=== PATIENT | female | born 1960 | race African-American/Black ===

== ENCOUNTER → 2017-01-21 | Outpatient (CLI) | payer OTHER ==
[2014-10-08 05:05] VITALS: BP 123/81
--- NOTE | 2017-01-21 13:35 | RAD ---
DATE: 01/21/2017 EXAM: DIGITAL DIAGNOSTIC BILATERAL HISTORY: Right breast cancer COMPARISON: 12/19/2014 This study was interpreted with the benefit of Computerized Aided Detection (CAD). The breast parenchyma shows scattered fibroglandular densities. Breast parenchyma level B. FINDINGS: There has been interval resection of the mass previously seen in the upper outer right breast, reportedly a breast malignancy. There is now architectural distortion with overlying skin thickening and retraction at the surgical site. There are several faint microcalcifications in this region. The findings probably represent postsurgical and posttherapeutic scarring with fat necrosis. Recurrent malignancy cannot be excluded. The fibroglandular pattern in the left breast is unchanged. No new or enlarging left breast densities or suspicious microcalcifications are evident. IMPRESSION: 1. Postsurgical and posttherapeutic changes in the upper outer quadrant of the right breast as described above. Residual or recurrent tumor cannot be excluded in the presence of these opacities. Clinical surveillance and follow-up right mammograms in 6 months are suggested. 2. Stable left mammograms without evidence of malignancy. BI-RADS CATEGORY: 3 PROBABLY BENIGN FINDING(S)-SHORT INTERVAL FOLLOW-UP SUGGESTED RECOMMENDED FOLLOW-UP: 6M 6 MONTH FOLLOW-UP PQRS compliance statement: Patient information was entered into a reminder system with a target due date for the next mammogram. Mammography is a sensitive method for finding small breast cancers, but it does not detect them all and is not a substitute for careful clinical examination. A negative mammogram does not negate a clinically suspicious finding and should not result in delay in biopsying a clinically suspicious abnormality. "Our facility is accredited by the [employer] Mammography [employer]."
== END | disposition home or self-care (01) ==
LOC: MAMMO 12:58
PROVIDERS: ATTEND Internal Medicine Medical Oncology
DX: R92.0 Mammographic microcalcification found on diagnostic imaging of breast (principal); Z85.3 Personal history of malignant neoplasm of breast
CPT/HCPCS: G0204; 77066

== ENCOUNTER → 2017-07-20 | Outpatient (CLI) | payer OTHER ==
[2014-10-08 05:05] VITALS: BP 123/81
--- NOTE | 2017-07-20 10:00 | RAD ---
DATE: 07/20/2017. EXAM: DIGITAL DIAGNOSTIC BILATERAL. HISTORY: Personal history of right breast cancer status post breast conservation therapy. Six-month follow-up. COMPARISON: 01/21/2017. This study was interpreted with the benefit of Computerized Aided Detection (CAD). FINDINGS: The breast parenchyma is heterogeneously dense, which could reduce sensitivity of mammography. Breast parenchyma level C.. Post breast conservation therapy changes are again noted superolaterally on the right. A few microcalcifications in the region appears stable. There is no evidence of recurrence. There are no enlarged axillary lymph nodes. On the left, the parenchymal pattern is stable. A coarse calcification appears benign. BI-RADS CATEGORY: 2 BENIGN FINDING(S). RECOMMENDED FOLLOW-UP: 12M 12 MONTH FOLLOW-UP. PQRS compliance statement: Patient information was entered into a reminder system with a target due date 07/20/2018 for the next mammogram. Mammography is a sensitive method for finding small breast cancers, but it does not detect them all and is not a substitute for careful clinical examination. A negative mammogram does not negate a clinically suspicious finding and should not result in delay in biopsying a clinically suspicious abnormality. "Our facility is accredited by the [employer] Mammography [employer]."
== END | disposition home or self-care (01) ==
LOC: MAMMO 09:11
PROVIDERS: ATTEND Nurse Practitioner
DX: R92.8 Other abnormal and inconclusive findings on diagnostic imaging of breast (principal); Z85.3 Personal history of malignant neoplasm of breast
CPT/HCPCS: 77066

== ENCOUNTER → 2018-07-19 | Outpatient (CLI) | payer OTHER ==
[2014-10-08 05:05] VITALS: BP 123/81
--- NOTE | 2018-07-20 12:22 | RAD ---
DATE: 07/19/2018 EXAM: DIGITAL SCREEN BILAT W/CAD HISTORY: Previous breast cancer COMPARISON: 07/20/2017 This study was interpreted with the benefit of Computerized Aided Detection (CAD). Breast Density: HETERO The breast parenchyma is heterogenously dense, which could reduce sensitivity of mammography. Breast parenchyma level C. FINDINGS: There is unchanged architectural distortion superolaterally in the right breast compatible with postsurgical/radiation change. No new or enlarging breast density is seen. Minimal benign type calcification is present. No suspicious microcalcifications have developed. IMPRESSION: Stable mammograms without evidence of malignancy. BI-RADS CATEGORY: 2 BENIGN FINDING(S) RECOMMENDED FOLLOW-UP: 12M 12 MONTH FOLLOW-UP PQRS compliance statement: Patient information was entered into a reminder system with a target due date for the next mammogram. Mammography is a sensitive method for finding small breast cancers, but it does not detect them all and is not a substitute for careful clinical examination. A negative mammogram does not negate a clinically suspicious finding and should not result in delay in biopsying a clinically suspicious abnormality. "Our facility is accredited by the [employer] Mammography [employer]."
== END | disposition home or self-care (01) ==
LOC: MAMMO 15:28
PROVIDERS: ATTEND Family Medicine
DX: Z12.31 Encounter for screening mammogram for malignant neoplasm of breast (principal)
CPT/HCPCS: 77067

== ENCOUNTER → 2019-05-17 | Outpatient (CLI) | payer OTHER ==
[2014-10-08 05:05] VITALS: BP 123/81
--- NOTE | 2019-05-18 14:03 | RAD ---
DATE: 05/17/2019 EXAM: DIGITAL DIAGNOSTIC BILATERAL, BREAST LEFT HISTORY: Abnormal left axillary lymph nodes on CT exam performed at an outside institution dated 05/15/2019 COMPARISON: 07/19/2018, 07/20/2017, 01/21/2017, 12/19/2014 mammographic exams This study was interpreted with the benefit of Computerized Aided Detection (CAD). Breast Density: SCATTERED The breast parenchyma shows scattered fibroglandular densities. Breast parenchyma level B. FINDINGS: Distortion involving the right upper-outer breast corresponding to previous lumpectomy noted. No suspicious calcification, masses, or visualized suspicious lymph nodes. Limited ultrasound imaging of the left axilla was performed. There are abnormal appearing lymph nodes. Largest of these measures up to 1.8 cm in its longitudinal dimension with cortical thickness of 0.7 cm. Another lymph node is present with longitudinal axis of 1.2 cm and a thickened cortex of 0.6 cm. Effacement of the hilum is evident. A smaller lymph node with longitudinal dimension of 1 cm present with thickened cortex. Benign-appearing small lymph node is also present. IMPRESSION: At least 3 abnormal appearing lymph nodes. BI-RADS CATEGORY: 4 SUSPICIOUS ABNORMALITY- BIOPSY SHOULD BE CONSIDERED RECOMMENDED FOLLOW-UP: BIO BIOPSY RECOMMENDED. Ultrasound-guided biopsy of abnormal left axillary lymph nodes is recommended. RPMI solution is recommended to be available for placement of biopsy specimens to assess for possibility of lymphoma as well as metastatic breast carcinoma or other metastatic disease. PQRS compliance statement: Patient information was entered into a reminder system with a target due date for the next mammogram. Mammography is a sensitive method for finding small breast cancers, but it does not detect them all and is not a substitute for careful clinical examination. A negative mammogram does not negate a clinically suspicious finding and should not result in delay in biopsying a clinically suspicious abnormality. "Our facility is accredited by the [employer] Mamm[employer]."
== END | disposition home or self-care (01) ==
LOC: MAMMO 14:05
PROVIDERS: ATTEND Nurse Practitioner Family
DX: N64.4 Mastodynia (principal)
CPT/HCPCS: 76641; 77066